=== PATIENT | male | born 1960 | race Caucasian/White ===

== ENCOUNTER 2020-07-08 05:33 | Emergency (ER) | payer MEDICARE, OTHER ==
[~2020-07-08 05:33] MED LIST: BENTYL 20MG TAB20 MG PO; ECOTRIN81 MG PO; FLEXERIL 10 MG10 MG PO; HORIZANT600 MG PO; HYDROCODON-ACE1 EAC6 PO; ROBITUSSIN AC480 ML PO; TAMIFLU 75 MG C75 MG PO; ZOFRAN ODT 4 MG4 MG PO
== END 2020-07-08 06:25 | disposition home or self-care (01) ==
LOC: ER1 05:33
DX: M10.9 Gout, unspecified (principal); F17.210 Nicotine dependence, cigarettes, uncomplicated; Z88.0 Allergy status to penicillin
CPT/HCPCS: 96372; 99283; J1100; J1885

== ENCOUNTER 2020-10-17 16:38 | Emergency (ER) | payer MEDICARE, OTHER ==
[2020-10-17 19:28] LABS: HEMOGLOBIN 16.6 gm/dl (14.0-17.5); RED BLOOD COUNT 5.03 M/UL (4.20-5.50); WHITE BLOOD COUNT 7.1 K/UL (4.5-11.0)
[2020-10-17 19:48] LABS: BUN/CREATININE RATIO 6 (0-10)
== END 2020-10-17 22:30 | disposition home or self-care (01) ==
LOC: ER1 16:38
PROVIDERS: Emergency Medicine
DX: R82.81 Pyuria (principal); R11.0 Nausea; I10 Essential (primary) hypertension; F17.200 Nicotine dependence, unspecified, uncomplicated; Z88.0 Allergy status to penicillin
CPT/HCPCS: 80053; 81001; 83690; 85025; 87086; 96374; 96375; 99284; J2270; J2405

== ENCOUNTER → 2021-07-10 | Outpatient (CLI) | payer MEDICARE, OTHER ==
[~2021-07-10] VITALS: Ht 182.9 cm; Wt 88.9 kg
== END ==
LOC: EROP 12:04
DX: U07.1 COVID-19 (principal); Z23 Encounter for immunization; C80.1 Malignant (primary) neoplasm, unspecified; N18.9 Chronic kidney disease, unspecified
CPT/HCPCS: M0247; Q0247